=== PATIENT | female | born 1950 | race Caucasian/White ===

== ENCOUNTER → 2017-01-28 | Outpatient (CLI) | payer MEDICARE ==
[~2017-01-28] MED LIST: ALOG6.25 PO; BUPR75TA5 PO; DEXL60CA2 PO; ESTR0.3T PO; GABA-585 PO; INSU100C4 SQ; INSU100V8 SQ; IRBE75TA2 PO; LEVO25TA55 PO; METO10TA81 PO; PHEN37.598 PO; SERT25TA PO
--- NOTE | 2017-01-28 15:08 | RAD ---
Left lower extremity venous ultrasound, 01/28/2017 : History: Left leg swelling and pain Duplex evaluation including grayscale, color flow and spectral Doppler analysis was performed. The femoral and popliteal veins show no filling defects to suggest DVT. The visualized calf veins are unremarkable. There is a moderate-sized peripatellar fluid collection most likely lying in the knee joint. A small 6 x 21 x 29 mm fluid collection in the popliteal fossa is probably a Colmenares's cyst. IMPRESSION: 1. There is no sonographic evidence of deep vein thrombosis in the left lower extremity. 2. Moderate sized left knee joint effusion. 3. Small left popliteal cyst.
== END | disposition home or self-care (01) ==
LOC: US 13:40
PROVIDERS: ATTEND Internal Medicine
DX: M71.22 Synovial cyst of popliteal space [Baker], left knee (principal); M79.89 Other specified soft tissue disorders; M25.462 Effusion, left knee
CPT/HCPCS: 93971

== ENCOUNTER → 2017-05-09 | Outpatient (CLI) | payer MEDICARE ==
[~2017-05-09] MED LIST changes: +BUPIVACAINE MPF 0.5% 30 ML VIAL. ONE; +LIDOCAINE 1% PF 30 ML VIAL. ONE
== END | disposition home or self-care (01) ==
LOC: SURG 11:03
PROVIDERS: ATTEND Anesthesiology Pain Medicine
DX: M17.12 Unilateral primary osteoarthritis, left knee (principal); I10 Essential (primary) hypertension; K21.9 Gastro-esophageal reflux disease without esophagitis; E11.9 Type 2 diabetes mellitus without complications; E07.9 Disorder of thyroid, unspecified; Z90.710 Acquired absence of both cervix and uterus; Z98.890 Other specified postprocedural states
CPT/HCPCS: 64450; 82947; J2001; J3490; 20610

== ENCOUNTER → 2017-05-30 | Outpatient (CLI) | payer MEDICARE ==
[~2017-05-30] MED LIST changes: -BUPIVACAINE MPF 0.5% 30 ML VIAL. ONE; +IOHEXOL 240 MG/ML 50ML VIAL. ONE; -LIDOCAINE 1% PF 30 ML VIAL. ONE
== END | disposition home or self-care (01) ==
LOC: SURG 09:44
PROVIDERS: ATTEND Anesthesiology Pain Medicine
DX: M70.62 Trochanteric bursitis, left hip (principal); M70.61 Trochanteric bursitis, right hip; I10 Essential (primary) hypertension; M19.91 Primary osteoarthritis, unspecified site; K21.9 Gastro-esophageal reflux disease without esophagitis; E11.9 Type 2 diabetes mellitus without complications; E07.9 Disorder of thyroid, unspecified; Z90.710 Acquired absence of both cervix and uterus; Z98.890 Other specified postprocedural states
CPT/HCPCS: 20610; Q9966

== ENCOUNTER → 2017-05-30 | Outpatient (CLI) | payer MEDICARE ==
[~2017-05-30] MED LIST changes: +IOHEXOL 300 MG/ML 75 ML VIAL. IV ONE
[2017-05-30 11:06] LABS: CREATININE 0.9 mg/dL (0.6-1.0); GFR 62.8
--- NOTE | 2017-05-30 12:33 | RAD ---
HIP BILATERAL WITH PELVIS (pelvic AP, bilateral frog-leg view) Clinical Indication: OSTEOARTHRITIS Comparison: Hip radiographs dated 03/01/2015. Findings: No acute fracture or malalignment. The joint spaces are maintained. Bony mineralization is normal for the patient's age. No significant soft tissue abnormality. No radiopaque foreign body. IMPRESSION: No acute fracture or malalignment.
--- NOTE | 2017-05-30 15:29 | RAD ---
CT abdomen/pelvis Indication: Hypergastrinemia Technique: CT abdomen and pelvis with 75 mL of Omnipaque 300 IV contrast and 30 mL of Omnipaque 240 with multiplanar reformats. Comparison: Previous study from 12/28/2015 Findings: Heart is normal in size. No pericardial or pleural effusion. Clear lung bases. Liver is normal in morphology without focal lesion. Spleen within normal limits. Gallstone noted. No pericholecystic fluid or gallbladder wall thickening. Pancreas within normal limits. Right adrenal gland within normal limits. Relatively stable 2.7 x 1.6 cm left adrenal nodule. No hydronephrosis or suspicious renal lesion. No retroperitoneal or pelvic adenopathy. Scattered atherosclerotic disease of abdominal aorta and bilateral iliac arteries. Heavily calcified plaque seen at the origin of the celiac axis. No bowel obstruction. Uterus is surgically absent. Relatively stable 1.5 x 1.4 cm simple appearing cyst seen in the presacral space (series 2 image 71) . Bladder is within normal limits. No solid adnexal lesions. Stable compression deformity of L1 vertebral body with kyphoplasty changes. No suspicious bony lesions. Impression: 1. No findings to explain patient's symptoms. 2. Stable left adrenal nodule, presumed adenoma. 3. Cholelithiasis without acute cholecystitis. PQRS Compliance Statement: One or more of the following individualized dose reduction techniques were utilized for this examination: 1. Automated exposure control 2. Adjustment of the mA and/or kV according to patient size 3. Use of iterative reconstruction technique
== END | disposition home or self-care (01) ==
LOC: LAB 10:28
PROVIDERS: ATTEND Anesthesiology Pain Medicine
DX: K80.20 Calculus of gallbladder without cholecystitis without obstruction (principal); E16.4 Increased secretion of gastrin; E27.8 Other specified disorders of adrenal gland; I70.0 Atherosclerosis of aorta; Z90.710 Acquired absence of both cervix and uterus
CPT/HCPCS: 36415; 73521; 74177; 82565; 84520; Q9966; Q9967

== ENCOUNTER → 2017-08-01 | Outpatient (CLI) | payer MEDICARE ==
[~2017-08-01] MED LIST changes: -IOHEXOL 240 MG/ML 50ML VIAL. ONE; -IOHEXOL 300 MG/ML 75 ML VIAL. IV ONE
== END | disposition home or self-care (01) ==
LOC: SURG 12:49
PROVIDERS: ATTEND Anesthesiology Pain Medicine
DX: M16.11 Unilateral primary osteoarthritis, right hip (principal); I10 Essential (primary) hypertension; M19.91 Primary osteoarthritis, unspecified site; K21.9 Gastro-esophageal reflux disease without esophagitis; E11.9 Type 2 diabetes mellitus without complications; E07.9 Disorder of thyroid, unspecified
CPT/HCPCS: 20610; 77002

== ENCOUNTER → 2017-08-04 | Outpatient (CLI) | payer MEDICARE ==
[~2017-08-04] MED LIST changes: +BUPIVACAINE MPF 0.25% 10 ML VIAL. ONE; +IOHEXOL 300 MG/ML 50 ML VIAL. ONE; +LIDOCAINE 1% PF 30 ML VIAL. ONE; +methylPREDNISolone ACETATE 40 MG/ML VIAL. ONE
--- NOTE | 2017-08-04 12:21 | RAD ---
DATE: August 04, 2017 EXAM: MAMMO SRINI DIAG LT, BREAST LEFT HISTORY: Excisional biopsy for papilloma in March. Brown discharge. COMPARISON: Multiple prior studies back to November 24, 2014. TECHNIQUE: 2D digital CC and MLO views of the left breast were obtained. Limited left breast ultrasound was performed. This study was interpreted with the benefit of Computerized Aided Detection (CAD). FINDINGS: The breast parenchyma is heterogeneously dense, category C, which may obscure small masses. There is no worrisome mass or area of architectural distortion. There are scattered benign-appearing calcifications throughout the breast, similar to priors. Given no retroareolar mass by mammogram, limited ultrasound was performed. There is a single prominent retroareolar duct without any intraductal filling defect. There is no worrisome mass. IMPRESSION: Benign findings on mammogram and ultrasound. Given discharge which patient states is expressible, galactogram can be considered. BI-RADS CATEGORY: 3 PROBABLE BENIGN-SHORT TERM F/U RECOMMENDED FOLLOW-UP: 6M 6 MONTH FOLLOW-UP . This will be a 6 month follow-up of the left breast and annual screening of the right breast. Again, galactogram also can be considered. PQRS compliance statement: Patient information was entered into a reminder system with a target due date for the next mammogram. Mammography is a sensitive method for finding small breast cancers, but it does not detect them all and is not a substitute for careful clinical examination. A negative mammogram does not negate a clinically suspicious finding and should not result in delay in biopsying a clinically suspicious abnormality. "Our facility is accredited by the [employer] Mammography Program."
== END | disposition home or self-care (01) ==
LOC: MAMMO 10:36
PROVIDERS: ATTEND Surgery
DX: N64.52 Nipple discharge (principal); R92.1 Mammographic calcification found on diagnostic imaging of breast
CPT/HCPCS: 76641; G0206; G0279; J1030; J2001; J3490; Q9967; 77061; 77065

== ENCOUNTER → 2017-09-05 | Outpatient (CLI) | payer MEDICARE ==
[~2017-09-05] MED LIST changes: -BUPIVACAINE MPF 0.25% 10 ML VIAL. ONE; +HYALURONATE SODIUM 20 MG/2 ML SYRINGE. ONE; -IOHEXOL 300 MG/ML 50 ML VIAL. ONE; -methylPREDNISolone ACETATE 40 MG/ML VIAL. ONE
== END | disposition home or self-care (01) ==
LOC: SURG 09:24
PROVIDERS: ATTEND Anesthesiology Pain Medicine
DX: M17.12 Unilateral primary osteoarthritis, left knee (principal); I10 Essential (primary) hypertension; M19.90 Unspecified osteoarthritis, unspecified site; E11.9 Type 2 diabetes mellitus without complications; E07.9 Disorder of thyroid, unspecified; Z72.89 Other problems related to lifestyle; Z72.0 Tobacco use
CPT/HCPCS: 20610; 77002; J2001

== ENCOUNTER → 2017-09-12 | Outpatient (CLI) | payer MEDICARE | END | disposition home or self-care (01) | LOC: SURG 14:49 | PROVIDERS: ATTEND Anesthesiology Pain Medicine | DX: M17.12 Unilateral primary osteoarthritis, left knee (principal) | CPT/HCPCS: 20610; 77002; J2001 ==

== ENCOUNTER → 2017-09-16 | Outpatient (CLI) | payer MEDICARE ==
[~2017-09-16] MED LIST changes: -HYALURONATE SODIUM 20 MG/2 ML SYRINGE. ONE
== END | disposition home or self-care (01) ==
LOC: SURG 13:49
PROVIDERS: ATTEND Anesthesiology
DX: M17.12 Unilateral primary osteoarthritis, left knee (principal); I10 Essential (primary) hypertension; F17.200 Nicotine dependence, unspecified, uncomplicated; E11.9 Type 2 diabetes mellitus without complications; Z79.4 Long term (current) use of insulin; Z79.899 Other long term (current) drug therapy
CPT/HCPCS: 20610; 77002; J2001

== ENCOUNTER → 2017-11-20 | Outpatient (CLI) | payer MEDICARE ==
[~2017-11-20] MED LIST changes: -LIDOCAINE 1% PF 30 ML VIAL. ONE
--- NOTE | 2017-11-20 15:37 | RAD ---
Left knee, 3 views, 11/20/2017: History: Knee pain AP standing views of both knees as well as lateral and tangential patellar views on the left were obtained as requested. There is moderate narrowing of the medial compartment of the left knee joint with mild marginal spurring. There is mild degenerative change at the patellofemoral joint on the left. No fracture or dislocation is identified. There does appear to be a small left joint effusion. Arterial calcifications are present. IMPRESSION: 1. Moderate degenerative change with dominant involvement of the medial compartment. 2. No acute bony abnormality is detected.
== END | disposition home or self-care (01) ==
LOC: DXRAD 10:47
PROVIDERS: ATTEND Orthopaedic Surgery Sports Medicine
DX: M17.12 Unilateral primary osteoarthritis, left knee (principal); M25.462 Effusion, left knee; I70.292 Other atherosclerosis of native arteries of extremities, left leg
CPT/HCPCS: 73562

== ENCOUNTER → 2018-03-12 | Outpatient (CLI) | payer MEDICARE ==
--- NOTE | 2018-03-12 16:55 | RAD ---
INDICATION: Right hip pain. TECHNIQUE: 2 views of the right hip are submitted for review. No comparison is available. FINDINGS: There is mild narrowing of the joint space superiorly. No fracture or dislocation is apparent. There is minimal spurring from the acetabulum and femoral head. There are calcified phleboliths. IMPRESSION: Mild degenerative changes. Electronically signed by: Gus Paredes MD (03/12/2018 4:52 PM) [facility]
== END | disposition home or self-care (01) ==
LOC: RAD 16:31
PROVIDERS: ATTEND Internal Medicine
DX: M16.11 Unilateral primary osteoarthritis, right hip (principal); I87.8 Other specified disorders of veins; I10 Essential (primary) hypertension; E11.9 Type 2 diabetes mellitus without complications; K21.9 Gastro-esophageal reflux disease without esophagitis
CPT/HCPCS: 73502

== ENCOUNTER → 2018-03-18 | Outpatient (CLI) | payer MEDICARE ==
[2018-03-18 11:58] LABS: CREATININE 0.9 mg/dL (0.6-1.0); GFR 62.6
[2018-03-18] MEDS: IOHEXOL 300 MG/ML 75 ML VIAL. IV ONE (12:06)
--- NOTE | 2018-03-18 12:33 | RAD ---
CHEST PA LATERAL Clinical indications: SHORTNESS OF AIR TIMES 3 DAYS AGO COMPARISON: April 24, 2016. Findings: No acute lung infiltrate or pleural effusion or pulmonary edema or lung mass or pneumothorax is seen. Mild cardiomegaly is evident. This appears more prominent. The pulmonary vasculature, mediastinum and both dinah are unremarkable. A compression fracture of L1 is seen which has been treated with methylmethacrylate. This is unchanged.. Impression: New finding of mild cardiomegaly. No acute lung infiltrate. Electronically signed by: Kervin Phillips MD (03/18/2018 12:29 PM) [place] [id number]
--- NOTE | 2018-03-18 12:34 | RAD ---
PQRS Compliance Statement: One or more of the following individualized dose reduction techniques were utilized for this examination: 1. Automated exposure control 2. Adjustment of the mA and/or kV according to patient size 3. Use of iterative reconstruction technique CT CHEST WITH CONTRAST, PULMONARY ANGIOGRAM History: SHORTNESS OF BREATH TIMES 3 DAYS Comparison: None. Technique: Helical CT of the chest was performed after the administration of 75 cc of Omnipaque 300 intravenous contrast according to PE protocol. Axial and coronal reconstructions were obtained. 3-D MIP images were constructed to better evaluate the pulmonary arteries. Findings: Pulmonary arteries are adequately opacified. There is no evidence of pulmonary embolism. There is no thoracic aortic dissection. There are subcentimeter mediastinal lymph nodes. There are subcentimeter bilateral hilar lymph nodes. There is no adenopathy. Coronary artery disease. Great vessels normal caliber. Cardiac size is normal. No pericardial effusion. Prominent cardiophrenic fat. There is no pleural effusion. The central airways are patent. Mild upper lung centrilobular emphysema. Moderate atelectasis in the bilateral lower lobes. Cholelithiasis. 2.6 cm left adrenal nodule, attenuation measures -13 Hounsfield units. Nodule compatible with an adenoma. There is old compression fracture treated with vertebroplasty of the L1 vertebral body, incompletely imaged. IMPRESSION: 1. There is no CT evidence of pulmonary embolus. 2. Moderate bilateral lower lobe atelectasis. 3. Mild upper lobe centrilobular emphysema. 4. Cholelithiasis. 5. Left adrenal adenoma. Electronically signed by: Jaret Christianson MD (03/18/2018 12:31 PM) [id number]
== END | disposition home or self-care (01) ==
LOC: DXRAD 11:08
PROVIDERS: ATTEND Internal Medicine
DX: I51.7 Cardiomegaly (principal); J98.11 Atelectasis; J43.2 Centrilobular emphysema; K80.80 Other cholelithiasis without obstruction; D35.02 Benign neoplasm of left adrenal gland; I25.10 Atherosclerotic heart disease of native coronary artery without angina pectoris; I10 Essential (primary) hypertension; E11.9 Type 2 diabetes mellitus without complications; K21.9 Gastro-esophageal reflux disease without esophagitis; Z87.891 Personal history of nicotine dependence
CPT/HCPCS: 36415; 71046; 71275; 82565; Q9967

== ENCOUNTER → 2018-05-25 | Outpatient (CLI) | payer MEDICARE ==
--- NOTE | 2018-05-25 16:11 | RAD ---
DATE: 05/25/2018 EXAM: MAMMO SRINI DIAG BILAT HISTORY: Follow-up left benign breast biopsy, right breast screening COMPARISON: 08/04/2017, 01/21/2017 This study was interpreted with the benefit of Computerized Aided Detection (CAD). Breast Density: HETERO The breast parenchyma is heterogenously dense, which could reduce sensitivity of mammography. Breast parenchyma level C. FINDINGS: 2-D and 3-D tomosynthesis imaging was performed in CC and MLO projections. The fibroglandular tissues are heterogeneous and multinodular in character. Old right breast biopsy markers are evident. No new or enlarging breast density is seen. No spiculated mass or architectural distortion is evident. There are numerous scattered microcalcifications. The pattern suggests a benign etiology. No suspicious microcalcifications have developed. IMPRESSION: There is no mammographic evidence of malignancy in either breast. BI-RADS CATEGORY: 2 BENIGN FINDING(S) RECOMMENDED FOLLOW-UP: 12M 12 MONTH FOLLOW-UP PQRS compliance statement: Patient information was entered into a reminder system with a target due date for the next mammogram. Mammography is a sensitive method for finding small breast cancers, but it does not detect them all and is not a substitute for careful clinical examination. A negative mammogram does not negate a clinically suspicious finding and should not result in delay in biopsying a clinically suspicious abnormality. "Our facility is accredited by the [employer] Mammography Program."
== END | disposition home or self-care (01) ==
LOC: MAMMO 14:55
PROVIDERS: ATTEND Surgery
DX: R92.8 Other abnormal and inconclusive findings on diagnostic imaging of breast (principal)
CPT/HCPCS: 77066; G0279; 77062

== ENCOUNTER → 2019-05-31 | Outpatient (CLI) | payer MEDICARE ==
--- NOTE | 2019-05-31 16:55 | RAD ---
DATE: 05/31/2019 EXAM: MAMMO SRINI SCREENING BILATERAL HISTORY: Asymptomatic screening mammogram. History of benign left breast biopsy. COMPARISON: Prior mammograms from 05/25/2018, 08/04/2017, 01/21/2017 This study was interpreted with the benefit of Computerized Aided Detection (CAD). Breast Density: HETERO The breast parenchyma is heterogenously dense, which could reduce sensitivity of mammography. Breast parenchyma level C. FINDINGS: Bilateral CC and MLO views of the breasts were performed. Bilateral breast tomosynthesis was performed in CC and MLO projections. Right breast: There are no suspicious microcalcifications, masses or areas of architectural distortion. Left breast: There are no suspicious microcalcifications, masses or areas of architectural distortion. Findings are stable from prior mammogram. IMPRESSION: Negative bilateral mammogram. BI-RADS CATEGORY: 1 NEGATIVE RECOMMENDED FOLLOW-UP: 12M 12 MONTH FOLLOW-UP PQRS compliance statement: Patient information was entered into a reminder system with a target due date 05/31/2020 for the next mammogram. Mammography is a sensitive method for finding small breast cancers, but it does not detect them all and is not a substitute for careful clinical examination. A negative mammogram does not negate a clinically suspicious finding and should not result in delay in biopsying a clinically suspicious abnormality. "Our facility is accredited by the [employer] Mammography Program."
== END | disposition home or self-care (01) ==
LOC: MAMMO 13:00
PROVIDERS: ATTEND Internal Medicine
DX: Z12.31 Encounter for screening mammogram for malignant neoplasm of breast (principal)
CPT/HCPCS: 77063; 77067

== ENCOUNTER → 2020-06-02 | Outpatient (CLI) | payer MEDICARE ==
--- NOTE | 2020-06-02 16:13 | RAD ---
DATE: 06/02/2020 1:40 PM EXAM: MAMMO SRINI SCREENING BILATERAL HISTORY: Screening COMPARISON: March 31, 2019 and March 25, 2018 Bilateral CC and MLO views of the breasts were performed. Bilateral breast tomosynthesis was performed in CC and MLO projections. This study was interpreted with the benefit of Computerized Aided Detection (CAD). FINDINGS: Breast Density: HETERO The breast parenchyma Is heterogeneously dense, which could reduce sensitivity of mammography. Breast parenchyma level C Bilateral breast calcifications, left greater than right, similar compared to prior. Several bilateral well-circumscribed masses, unchanged. Right breast biopsy marker is identified, unchanged. No new suspicious masses, microcalcifications or architectural distortion is present to suggest malignancy in either breast. The visualized axillae are unremarkable. IMPRESSION: No mammographic evidence of malignancy. BI-RADS CATEGORY: 2 BENIGN FINDING(S) RECOMMENDED FOLLOW-UP: 12M 12 MONTH FOLLOW-UP Annual screening mammography is recommended, unless clinically indicated sooner based on symptoms or change in physical exam. PQRS compliance statement: Patient information was entered into a reminder system with a target due date for the next mammogram. Mammography is a sensitive method for finding small breast cancers, but it does not detect them all and is not a substitute for careful clinical examination. A negative mammogram does not negate a clinically suspicious finding and should not result in delay in biopsying a clinically suspicious abnormality. "Our facility is accredited by the [employer] Mammography Program."
== END ==
LOC: MAMMO 13:32
PROVIDERS: ATTEND Internal Medicine
DX: Z12.31 Encounter for screening mammogram for malignant neoplasm of breast (principal); N64.89 Other specified disorders of breast
CPT/HCPCS: 77063; 77067

== ENCOUNTER → 2020-06-07 | Outpatient (CLI) | payer MEDICARE ==
[~2020-06-07] MED LIST changes: +BUPIVACAINE MPF 0.25% 10 ML VIAL. ONE; +LIDOCAINE 1% PF 30 ML VIAL. ONE
[2020-06-07 14:11] VITALS: BP 145/93
--- NOTE | 2020-06-07 15:21 | RAD ---
5 views the cervical spine without comparison for occipital pain. FINDINGS: There is straightening of normal cervical lordosis, with no significant alignment abnormality. Prevertebral soft tissues are grossly unremarkable. There is narrowing of the intervertebral disc space at C5-6. Facet arthrosis is seen at multiple levels as well. The lateral axial articulation is intact. IMPRESSION: 1. No acute osseous or alignment abnormality of cervical spine. 2. Degenerative spondylopathy most prominent at C5-6. Electronically signed by: Elliott Krishnan MD (06/07/2020 3:18 PM) [id number]
== END | disposition home or self-care (01) ==
LOC: SURG 13:21
PROVIDERS: ATTEND Anesthesiology
DX: M47.816 Spondylosis without myelopathy or radiculopathy, lumbar region (principal); M48.8X2 Other specified spondylopathies, cervical region; G89.29 Other chronic pain; I70.292 Other atherosclerosis of native arteries of extremities, left leg; M81.0 Age-related osteoporosis without current pathological fracture; M17.0 Bilateral primary osteoarthritis of knee; I10 Essential (primary) hypertension; E11.9 Type 2 diabetes mellitus without complications; I87.8 Other specified disorders of veins; I25.10 Atherosclerotic heart disease of native coronary artery without angina pectoris; F17.200 Nicotine dependence, unspecified, uncomplicated; K21.9 Gastro-esophageal reflux disease without esophagitis; J43.2 Centrilobular emphysema; Z97.10 Presence of artificial limb (complete) (partial), unspecified; Z88.8 Allergy status to other drugs, medicaments and biological substances; Z72.89 Other problems related to lifestyle; Z79.899 Other long term (current) drug therapy; Z98.890 Other specified postprocedural states; Z79.4 Long term (current) use of insulin
CPT/HCPCS: 64493; 64494; 72040; J2001; J3490

== ENCOUNTER → 2020-06-30 | Outpatient (CLI) | payer MEDICARE ==
[2020-06-07 14:11] VITALS: BP 145/93
[~2020-06-30] MED LIST changes: -BUPIVACAINE MPF 0.25% 10 ML VIAL. ONE; -LIDOCAINE 1% PF 30 ML VIAL. ONE
== END ==
LOC: LAB 11:50
PROVIDERS: ATTEND Nurse Anesthetist, Certified Registered
DX: Z01.812 Encounter for preprocedural laboratory examination (principal); Z20.828 Contact with and (suspected) exposure to other viral communicable diseases
CPT/HCPCS: U0003

== ENCOUNTER → 2020-07-05 | Day surgery (SDC) | payer MEDICARE ==
[~2020-07-05] MED LIST changes: +BUPIVACAINE MPF 0.25% 10 ML VIAL. ONE; +BUPIVACAINE MPF 0.25% 30 ML VIAL. IJ ONE; +DEXAMETHASONE SOD PHOS 4 MG/ML VIAL. IVP ONE; +DEXAMETHASONE SOD PHOS 4 MG/ML VIAL. ONE; +LIDOCAINE 1% PF 30 ML VIAL. INJ ONE; +LIDOCAINE 1% PF 30 ML VIAL. ONE; +MIDAZOLAM HCL PF 2 MG/2 ML VIAL. ONE
[2020-07-05 09:40] VITALS: BP 104/64
== END | disposition home or self-care (01) ==
LOC: SURG 07:38
PROVIDERS: ATTEND Anesthesiology
DX: M47.816 Spondylosis without myelopathy or radiculopathy, lumbar region (principal); E11.9 Type 2 diabetes mellitus without complications; I10 Essential (primary) hypertension; I25.10 Atherosclerotic heart disease of native coronary artery without angina pectoris; F17.210 Nicotine dependence, cigarettes, uncomplicated; E07.9 Disorder of thyroid, unspecified; M19.90 Unspecified osteoarthritis, unspecified site; K21.9 Gastro-esophageal reflux disease without esophagitis; J43.2 Centrilobular emphysema; Z79.899 Other long term (current) drug therapy; Z79.4 Long term (current) use of insulin; Z88.8 Allergy status to other drugs, medicaments and biological substances; Z72.89 Other problems related to lifestyle; Z97.10 Presence of artificial limb (complete) (partial), unspecified; Z90.710 Acquired absence of both cervix and uterus
CPT/HCPCS: 64635; 64636; 99152; 99153; J1100; J2001; J2250; J3490

== ENCOUNTER → 2020-07-26 | Outpatient (CLI) | payer MEDICARE ==
[2020-07-05 09:40] VITALS: BP 104/64
[~2020-07-26] MED LIST changes: -BUPIVACAINE MPF 0.25% 10 ML VIAL. ONE; -BUPIVACAINE MPF 0.25% 30 ML VIAL. IJ ONE; -DEXAMETHASONE SOD PHOS 4 MG/ML VIAL. IVP ONE; -DEXAMETHASONE SOD PHOS 4 MG/ML VIAL. ONE; -LIDOCAINE 1% PF 30 ML VIAL. INJ ONE; -LIDOCAINE 1% PF 30 ML VIAL. ONE; -MIDAZOLAM HCL PF 2 MG/2 ML VIAL. ONE
--- NOTE | 2020-07-26 12:06 | RAD ---
EXAM: DUAL ENERGY X-RAY ABSORPTIOMETRY (DEXA). HISTORY: Postmenopausal screening. FINDINGS: The lowest measured T-score is -2.5 in the right distal radius, based on a bone mineral density of 0.286 g/cm^2. Refer to the worksheets for full detail. In comparison with the prior study of 04/24/2016, average bone mineral density at the right hip has changed -2.4%. IMPRESSION: Low bone mass. Bone mineral density yields a T-score between -1.0 and -2.5. Fracture risk is increased. FRAX was not calculated. METHODOLOGY: Dual energy x-ray absorptiometry was performed to measure bone mineral density. The following analysis is based on the 2019 Official Positions of the International Society for Clinical Densitometry: Measurements of the hips and the average of L1-L4 are preferred. When the spine and/or hip cannot be feasibly measured or interpreted, or in the setting of hyperparathyroidism, distal radial bone mineral density may be measured. The lumbar spine T-score is based on the average bone mineral density of L1-L4. In the setting of artifact or anatomic abnormality, some lumbar levels may be excluded, and the remaining levels used for calculation. A single lumbar level is not used for diagnosis, and if only a single level is available for assessment, another anatomic site will be used to assign a diagnosis. The hip T-score is based on the bone mineral density measurement of the femoral neck or total proximal femur of either side, whichever is lowest. Bilateral mean values are not used for diagnosis. The forearm T-score is derived from 33% of the distal radius of the nondominant forearm. For postmenopausal and perimenopausal women, and men age 50 or older, of all ethnic groups, T-scores are calculated through comparison of the current measurement with the NHANES III database standard for females aged 20-29 years. The lowest T-score of the evaluated anatomic sites is used to assign a diagnosis based on the World Health Organization densitometric classification. In premenopausal females and males younger than age 50, a Z-score is calculated based on population specific reference data for patient sex and self-reported ethnicity. Electronically signed by: Ara Mendiola MD (07/26/2020 12:03 PM) [facility]
== END ==
LOC: DXRAD 11:31
PROVIDERS: ATTEND Internal Medicine
DX: M81.8 Other osteoporosis without current pathological fracture (principal); M89.9 Disorder of bone, unspecified; M85.88 Other specified disorders of bone density and structure, other site
CPT/HCPCS: 77080; 77081

== ENCOUNTER → 2020-11-29 | Day surgery (SDC) | payer MEDICARE ==
[~2020-11-29] MED LIST changes: +BUPIVACAINE MPF 0.25% 10 ML VIAL. ONE; +DAPA10TA PO; +GABA800T5 PO; +INSU100V38 SQ; +IOHEXOL 300 MG/ML 50 ML VIAL. ONE; +LEVO175T5 PO; +LIDOCAINE 1% PF 30 ML VIAL. ONE; +LOSA100T14 PO; +METO50TA29 PO; +PANT40TA6 PO; +PREG150C PO; +methylPREDNISolone ACETATE 40 MG/ML VIAL. ONE
[2020-11-29 14:04] VITALS: BP 139/82
== END | disposition home or self-care (01) ==
LOC: SURG 12:53
PROVIDERS: ATTEND Anesthesiology
DX: M46.1 Sacroiliitis, not elsewhere classified (principal); E11.9 Type 2 diabetes mellitus without complications; E78.5 Hyperlipidemia, unspecified; I10 Essential (primary) hypertension; K21.9 Gastro-esophageal reflux disease without esophagitis; M47.817 Spondylosis without myelopathy or radiculopathy, lumbosacral region; M51.36 Other intervertebral disc degeneration, lumbar region; I25.10 Atherosclerotic heart disease of native coronary artery without angina pectoris; J43.2 Centrilobular emphysema; Z88.8 Allergy status to other drugs, medicaments and biological substances; Z79.4 Long term (current) use of insulin; Z90.710 Acquired absence of both cervix and uterus; Z79.899 Other long term (current) drug therapy; Z98.890 Other specified postprocedural states
CPT/HCPCS: G0260; J1030; J3490; Q9967; 27096

== ENCOUNTER → 2020-12-15 | Outpatient (CLI) | payer MEDICARE ==
[2020-11-29 14:04] VITALS: BP 139/82
[~2020-12-15] MED LIST changes: -BUPIVACAINE MPF 0.25% 10 ML VIAL. ONE; -IOHEXOL 300 MG/ML 50 ML VIAL. ONE; -LIDOCAINE 1% PF 30 ML VIAL. ONE; -methylPREDNISolone ACETATE 40 MG/ML VIAL. ONE
== END ==
LOC: LAB 10:01
PROVIDERS: ATTEND Nurse Anesthetist, Certified Registered
DX: Z01.812 Encounter for preprocedural laboratory examination (principal); Z20.822 Contact with and (suspected) exposure to COVID-19
CPT/HCPCS: U0003; U0005

== ENCOUNTER → 2020-12-20 | Day surgery (SDC) | payer MEDICARE ==
[~2020-12-20] MED LIST changes: +ACETAMINOPHEN 500 MG TABLET PO ONE; +BUPIVACAINE-EPI 0.25%-1:200000 MPF 30 ML VIAL. INJ ONE; +BUPIVACAINE-EPI 0.25%-1:200000 MPF 30 ML VIAL. ONE; +IPRATRPIUM/ALBUTEROL 0.5/2.5MG 3 ML NEBU. NEB PRN; +IV RINGERS SOLUTION,LACTATED 1,000 ML IV SCH; +MIDAZOLAM HCL PF 2 MG/2 ML VIAL. IV ONE; +MIDAZOLAM HCL PF 2 MG/2 ML VIAL. ONE; +ONDANSETRON PF 4 MG/2 ML VIAL. IV PRN; +PROPOFOL 10,000 MCG/ML (20ML) VIAL IV ONE
--- NOTE | 2020-12-20 08:56 | PDOC4 ---
Operative Report DATE December 20, 2020 at 854 Preop Diagnosis Abdominal wall lipoma Post-op Diagnosis Same Operation Performed Excision of abdominal wall lipoma Patient is 69-year-old female with complaints of enlarging mass on her right upper abdomen. Procedure of excision was explained to the patient detail risk benefits were also discussed including bleeding infection alternatives to this procedure also discussed with the patient who seemed to understand and gave both verbal and written consent had procedure performed. Patient was taken to the operating room placed in supine position IV sedation was initiated by anesthesia once patient was properly sedated her abdomen was prepped and draped usual sterile fashion using ChloraPrep. An area over the mass was injected with 1% lidocaine with epinephrine once this was anesthetized and incision was made 15 blade scalpel is carried down through the subcutaneous tissue to the mass the mass was excised sharply large lipomatous mass about 8 cm in diameter. The wound was then closed in 2 layers the deep layer running 3-0 Vicryl and the skin was reapproximated for subcuticular Monocryl incision size was 10 cm. Patient was awakened from sedation and taken recovery in stable condition all sponge instrument needle counts listed as correct estimated blood loss 10 mL Surgeon Mumtaz ANESTHESIA PROPOSED: MAC, LOCAL Blood Loss 10 mL Specimen Abdominal wall mass Complications None TALHA ZHENG MD Dec 20, 2020 08:56
--- NOTE | 2020-12-20 08:58 | DISCH ---
DISCHARGE INSTRUCTIONS-DC Condition on Discharge Condition on Discharge: Stable Activity after Discharge Activity Instructions for Disc: Avoid exertion Other activity instructions: May shower in 24 hours Diet after Discharge Diet after Discharge: Regular Wound/Incision Care Other wound/incision instructi: May shower in 24 hours Contacting the after DC Call your doctor for: If your condition worsens Follow-Up Follow up with: Dr. Zheng in 2 weeks TALHA ZHENG MD Dec 20, 2020 08:58
[2020-12-20 09:29] VITALS: BP 113/74
== END | disposition home or self-care (01) ==
LOC: SURG 07:36
PROVIDERS: ATTEND Surgery
DX: D17.1 Benign lipomatous neoplasm of skin and subcutaneous tissue of trunk (principal); I10 Essential (primary) hypertension; E11.9 Type 2 diabetes mellitus without complications; E78.5 Hyperlipidemia, unspecified; J43.2 Centrilobular emphysema; K21.9 Gastro-esophageal reflux disease without esophagitis; I25.10 Atherosclerotic heart disease of native coronary artery without angina pectoris; M19.90 Unspecified osteoarthritis, unspecified site; Z97.10 Presence of artificial limb (complete) (partial), unspecified; Z98.890 Other specified postprocedural states; Z87.891 Personal history of nicotine dependence
CPT/HCPCS: 22903; 82947; J2704; J3010; J3490; 88304; J2250

== ENCOUNTER → 2021-06-08 | Outpatient (CLI) | payer MEDICARE ==
[2020-12-20 09:29] VITALS: BP 113/74
[~2021-06-08] MED LIST changes: -ACETAMINOPHEN 500 MG TABLET PO ONE; -BUPIVACAINE-EPI 0.25%-1:200000 MPF 30 ML VIAL. INJ ONE; -BUPIVACAINE-EPI 0.25%-1:200000 MPF 30 ML VIAL. ONE; -IPRATRPIUM/ALBUTEROL 0.5/2.5MG 3 ML NEBU. NEB PRN; -IV RINGERS SOLUTION,LACTATED 1,000 ML IV SCH; -MIDAZOLAM HCL PF 2 MG/2 ML VIAL. IV ONE; -MIDAZOLAM HCL PF 2 MG/2 ML VIAL. ONE; -ONDANSETRON PF 4 MG/2 ML VIAL. IV PRN; -PROPOFOL 10,000 MCG/ML (20ML) VIAL IV ONE
--- NOTE | 2021-06-11 17:54 | RAD ---
Bilateral digital screening 2-D and 3-D (tomosynthesis) mammogram: Reason for examination: Routine screening. History of left breast papilloma. Comparison is made to previous mammograms dated 06/02/2020 and 05/31/2019. Bilateral mammograms in CC and oblique projections were obtained with 2-D imaging and 3-D tomosynthes is imaging and reviewed on the workstation. Interpretation was made with the benefit of CAD. Findings: Breast density: Category C. The breasts are heterogeneously dense, which may obscure small masses. There are no suspicious masses, malignant appearing calcifications or architectural distortion. There are multiple bilateral oval circumscribed masses. The largest is in the 9:00 position of the right b reast at posterior depth and measures 1.1 cm. There are diffuse benign-appearing calcifications with small groups that are not significantly changed. A marker is seen right breast in the 5:00 region. A marker is seen in the 9:00 position of the right breast at far posterior depth. Impression: No evidence of malignancy. ASSESSMENT: BI-RADS 2. Benign findings. Recommendations: Routine screening mammograms. This patient's information has been entered into a reminder system for the patient to be notified wit h the results of her examination and a target date for the next mammogram. Your patient's mammogram demonstrates that she has dense breast tissue (breast density category C or D), which could hide abnormalities, and if she has other risk factors for breast cancer that have bee n identified, she might benefit from supplemental screening tests that may be suggested by you as her ordering physician. Dense breast tissue, in and of itself, is a relatively common condition. Therefo re, this information is not provided to cause undue concern, but rather to raise your awareness and t o promote discussion with your patient regarding the presence of other risk factors, in addition to d ense breast tissue. Electronically signed by: Mahi Little MD (06/11/2021 5:52 PM) [id number]
== END ==
LOC: MAMMO 13:58
PROVIDERS: ATTEND Internal Medicine
DX: Z12.31 Encounter for screening mammogram for malignant neoplasm of breast (principal)
CPT/HCPCS: 77063; 77067

== ENCOUNTER → 2021-09-18 | Outpatient (CLI) | payer MEDICARE ==
[2020-12-20 09:29] VITALS: BP 113/74
--- NOTE | 2021-09-18 14:34 | RAD ---
EXAM: Head CT without contrast. HISTORY: Vertigo. Ataxia. TECHNIQUE: Computed tomographic images of the head were obtained without contrast. *One or more of the following individualized dose reduction techniques were utilized for this examina tion: 1. Automated exposure control. 2. Adjustment of the mA and/or kV according to patient size. 3. Use of iterative reconstruction technique. COMPARISON: None. FINDINGS: There is no acute or subacute extra-axial or intraparenchymal hemorrhage. There is no mass effect or midline shift. There is no hydrocephalus. There are areas of decreased attenuation within the cerebral white matter, nonspecific and likely rel ated to chronic small vessel disease. There is a small chronic lacunar infarct within the left caudat e nucleus. The visualized portions of the orbits, paranasal sinuses and mastoid air cells are unremarkable. No s uspicious calvarial lesion is seen. IMPRESSION: 1. No acute intracranial finding. 2. Cerebral white matter changes, likely due to chronic small vessel disease. 3. Small chronic lacunar infarct within the left caudate nucleus. Electronically signed by: Patito Longo MD (09/18/2021 2:32 PM) [id number]
== END ==
LOC: CT 14:14
PROVIDERS: ATTEND Internal Medicine
DX: I63.81 Other cerebral infarction due to occlusion or stenosis of small artery (principal); R90.82 White matter disease, unspecified; R27.0 Ataxia, unspecified; R42 Dizziness and giddiness
CPT/HCPCS: 70450